=== PATIENT | female | born 1965 | race Caucasian/White ===

== ENCOUNTER 2019-05-30 19:24 | Emergency (ER) | payer OTHER, SELFPAY ==
[2019-05-30 19:27] VITALS: BP 116/72; PULSE 73; RESP 14; TEMP 36.7; O2SAT 98
--- NOTE | 2019-05-30 19:34 | DI.RAD.S_ITS ---
PROCEDURE: XR HIP W PEL IF DONE LT 2V INDICATIONS: fall, pain left hip, radiates down TECHNIQUE: AP pelvis with lateral view(s) of the left hip(s). COMPARISON: None. FINDINGS: Bones: There is a slight area of lucency and irregularity along the superior aspect of the left pubic ramus. Pelvic ring appears intact. No suspicious bony lesions. Soft tissues: The visualized bowel gas pattern is normal. No suspicious soft tissue calcifications. IMPRESSION: Lucency and irregularity along the superior left pubic ramus near the symphysis suggestive of fracture. Dictated by: Lisbeth Alvarado M.D. on 05/30/2019 at 20:13 Approved by: Lisbeth Alvarado M.D. on 05/30/2019 at 20:14
[2019-05-30 19:38] VITALS: BP 106/69; PULSE 63; RESP 19; O2SAT 100
[2019-05-30] MEDS: ONDANSETRON 4 MG ODT SL (19:44)
[2019-05-30] MEDS: HYDROCODONE/ACET 5/325 TABLET 1 TAB PO (19:44)
[2019-05-30 20:00] VITALS: BP 116/75; PULSE 65; RESP 16; O2SAT 100
--- NOTE | 2019-05-30 20:54 | ED_ITS ---
HPI - Extremity Injury (Lower) <CHEVY Arcos - Last Filed: 05/30/19 22:00> General Chief Complaint: Extremity Injury, Lower Stated Complaint: FALL Time Seen by Provider: 05/30/19 19:34 Source: patient Mode of arrival: wheelchair Limitations: no limitations History of Present Illness HPI Narrative: This is a 54-year-old female, nonsmoker, who presents with significant other with chief complain of left hip pain radiating to groin area and below to her lower leg. She injured left hip when her 50 lb puppy pulled her down and she fell backwards and landed on her left side of body on a hard ground with some gravels. She denies any other injuries including head and neck. She denies pain in ankle, foot, knee, upper leg. She reports she is able to move her leg, foot. Her pain increases with raising her left leg and moving her legs. She denies tingling or numbness to her lower legs. She was brought in to ED room via wheelchair. Related Data Home Medications Medication Instructions Recorded Confirmed levothyroxine 75 mcg PO DAILY 05/30/19 05/30/19 Previous Rx's Medication Instructions Recorded hydrocodone-acetaminophen 1 tab PO Q6H PRN #20 tab 05/30/19 ondansetron 4 mg PO Q6-8H PRN #10 tab 05/30/19 Allergies Allergy/AdvReac Type Severity Reaction Status Date / Time Sulfa (Sulfonamide Allergy Unknown Verified 05/30/19 19:30 Antibiotics) Review of Systems <CHEVY Arcos - Last Filed: 05/30/19 22:00> Review of Systems General: Denies fever, chills, fatigue, malaise, sweats. HEENT: Denies sinus pain, ear pain, sore throat, difficulty swallowing, dizziness. Respiratory: Denies dyspnea, cough, wheezing, hemoptysis, sputum. Cardiovascular: Denies chest pain, palpitations, orthopnea, edema. Gastrointestinal: Denies nausea, vomiting, abdominal pain, diarrhea, constipation, melena. : Denies dysuria, frequency, incontinence, hematuria, urinary retention. Musculoskeletal: See HPI Skin: Denies rash, skin lesions, or other. Neurologic: Denies weakness, headache, numbness, change in speech, confusion, seizures, incoordination. Psychiatric: No concerning psychosocial issues. 12-point review of systems is negative except for those stated above. PFSH <CHEVY Arcos - Last Filed: 05/30/19 22:00> Medical History (Updated 05/30/19 @ 21:29 by CHEVY Arcos) Hypothyroidism (Acute) History of rectal fissure (Chronic) Surgical History History of colonoscopy (Chronic) Social History Smoking Status: Never smoker Social History Smoking Status: Never smoker Exam <CHEVY Arcos - Last Filed: 05/30/19 22:00> Narrative Exam Narrative: GEN: Alert, oriented x 3, well appearing and nourished, and in no acute distress. Head: Normal cephalic, atraumatic. No scalp or temporal tenderness, palpable mass or rash. EYES: Pupils are equal, round, and reactive to light and accommodation. Extraocular muscles are intact bilaterally. There is no subconjunctival hemorrhage, exudate and sclera non-icteric. ENT: Bilateral auditory canals and tympanic membranes. Hearing grossly intact. Nose without bleeding, purulent discharge, septal hematoma or deviation. Turbinate without erythema or swelling. Facial sinuses nontender to palpate. Mucous membrane moist, no mucosal lesion. Throat without erythema, tonsillar hypertrophy or exudate. Uvula in midline, airway patent. Neck: Trachea in midline. No JVD, non-tender without lymphadenopathy. No masses or thyroid megaly. Supple, non-tender and no meningeal signs. CARDIAC: Normal regular rate and rhythm without murmurs, gallops, or rubs. No chest wall tenderness. No peripheral edema, cyanosis or pallor. Capillary r efill is less than 2 seconds. RESPIRATORY: Lungs are cleat to auscultate bilaterally. No cough, wheezes, rales, or rhonchi. No stridor, respiratory distress, increase work of breathing, or accessary muscle used. ABD: Abdomen soft, nontender and non-distended. No guarding or rebound tenderness to palpate. Bowel sounds are normal in all 4 quadrants. There is no palpable masses or organomegaly. EXT: L groin pain with external rotation, Full ROM of all extremities with no loss of sensation, strength, effusion or edema. No obvious deformity, crepitus note. SKIN: Superficial abrasion on L posterior shoulder and flank. Warm, dry, normal color for patient. No erythema, lesions or rash over other visible areas. BACK: Nontender without deformity or crepitance. No flank tenderness. NEUROLOGICAL: Alert and oriented to place, time and person. Sensation and motor function intact bilaterally. No facial droops, dysphasia. PSYCHIATRIC: Good judgement and reason, without hallucinations, abnormal affect or abnormal behaviors during the examination. Patient is not suicidal. Initial Vital Signs Initial Vital Signs: Vital Signs Temperature 98.1 F 05/30/19 19:27 Pulse Rate 73 05/30/19 19:27 Respiratory Rate 14 05/30/19 19:27 Blood Pressure 116/72 05/30/19 19:27 Pulse Oximetry 98 05/30/19 19:27 Back/Spine/Pelvis Back: normal to inspection Thoracic/Lumbar Spine: thoracic and lumbar spine normal to inspection, thoraco- lumbar ROM normal, No pain with thoraco-lumbar ROM, No paraspinal tenderness, No thoraco-lumbar ROM limited and straight leg raise positive Sacroiliac Joints: tender to palpation, pain elicited by compression of iliac crest maneuver and pain elicited by passive hyperextension of lower extremity Sacrum: no ecchymosis, no erythema, no swelling and tenderness <Andrea Pimentel DO - Last Filed: 05/31/19 06:26> Initial Vital Signs Initial Vital Signs: Vital Signs Temperature 98.1 F 05/30/19 19:27 Pulse Rate 73 05/30/19 19:27 Respiratory Rate 14 05/30/19 19:27 Blood Pressure 116/72 05/30/19 19:27 Pulse Oximetry 98 05/30/19 19:27 Procedures <CHEVY Arcos - Last Filed: 05/30/19 22:00> Orthopedic Splinting/Casting Injury #1: Side: left Other Orthopedic Equipment: walker Post splinting neuro exam: intact Post splinting vascular exam: intact Placed by: Nursing Additional Comments: L pubic ramus fracture near symphysis. No splint applied. Course <CHEVY Arcos - Last Filed: 05/30/19 22:00> Orders Ordered: Discontinued Medications Hydrocodone Bitart/Acetaminophen ([place] 5/325) 1 tab PO NOW ONE Stop: 05/30/19 19:40 Last Admin: 05/30/19 19:44 Dose: 1 tab Hydrocodone Bitart/Acetaminophen (Vicodin Prepack) 1 bottle MISC SEEINSTR ONE Stop: 05/30/19 21:34 Last Admin: 05/30/19 22:00 Dose: 1 bottle Ondansetron HCl (Zofran Odt) 4 mg SL NOW ONE Stop: 05/30/19 19:40 Last Admin: 05/30/19 19:44 Dose: 4 mg Vital Signs - 8 hr 05/30/19 19:27 05/30/19 19:38 05/30/19 20:00 Temperature 98.1 F Pulse Rate 73 63 65 Respiratory Rate 14 19 16 Blood Pressure 116/72 Blood Pressure [Right Arm] 106/69 116/75 Pulse Oximetry 98 100 100 05/30/19 21:11 Temperature Pulse Rate 68 Respiratory Rate Blood Pressure Blood Pressure [Right Arm] 115/76 Pulse Oximetry 98 <Andrea Pimentel DO - Last Filed: 05/31/19 06:26> Orders Ordered: Discontinued Medications Hydrocodone Bitart/Acetaminophen ([place] 5/325) 1 tab PO NOW ONE Stop: 05/30/19 19:40 Last Admin: 05/30/19 19:44 Dose: 1 tab Hydrocodone Bitart/Acetaminophen (Vicodin Prepack) 1 bottle MISC SEEINSTR ONE Stop: 05/30/19 21:34 Last Admin: 05/30/19 22:00 Dose: 1 bottle Ondansetron HCl (Zofran Odt) 4 mg SL NOW ONE Stop: 05/30/19 19:40 Last Admin: 05/30/19 19:44 Dose: 4 mg Vital Signs - 8 hr 05/30/19 19:27 05/30/19 19:38 05/30/19 20:00 Temperature 98.1 F Pulse Rate 73 63 65 Respiratory Rate 14 19 16 Blood Pressure 116/72 Blood Pressure [Right Arm] 106/69 116/75 Pulse Oximetry 98 100 100 05/30/19 21:11 Temperature Pulse Rate 68 Respiratory Rate Blood Pressure Blood Pressure [Right Arm] 115/76 Pulse Oximetry 98 MDM - Extremity Injury (Lower) <CHEVY Arcos - Last Filed: 05/30/19 22:00> Differential Diagnosis Likely fracture of hip and other (strain of hip) Medical Records Attestation: I reviewed the patient's medical records. Lab Data Attestation: I reviewed the patient's lab results. Urine Dip Bedside Urine Glucose Negative Bedside Urine Bilirubin - Negative Bedside Urine Ketone +/- 5 Urine Specific [place] 1.010 Bedside Urine Occult Blood - Negative Bedside Urine pH 8.0 Bedside Urine Protein +/- 15 Bedside Urine Urobilinogen - Negative Bedside Urine Nitrite - Negative Bedside Urine Leukocytes - Negative Esterase Imaging Data XR-Hip: Radiologist's impression: [address] [address] XRay Report Signed Patient: Erica Grigsby [facility]#: [id number] : 1965Acct:[id number] Age/Sex: 54 / FDate of Service: 05/30/19 Loc: ED Accession Number: [id number] Procedure: XR hip w pel if done LT 2V Ordering Provider: Jadon Whitney PROCEDURE: XR HIP W PEL IF DONE LT 2V INDICATIONS: fall, pain left hip, radiates down TECHNIQUE: AP pelvis with lateral view(s) of the left hip(s). COMPARISON: None. FINDINGS: Bones: There is a slight area of lucency and irregularity along the superior aspect of the left pubic ramus. Pelvic ring appears intact. No suspicious bony lesions. Soft tissues: The visualized bowel gas pattern is normal. No suspicious soft tissue calcifications. IMPRESSION: Lucency and irregularity along the superior left pubic ramus near the symphysis suggestive of fracture. Dictated by: Lisbeth Alvarado M.D. on 05/30/2019 at 20:13 Approved by: Lisbeth Alvarado M.D. on 05/30/2019 at 20:14 [facility] Narrative Medical decision making narrative: This is a 54-year-old female who presents wi th left posterior he pain radiating to anterior groin and down to leg without neurological deficit. She was pulled by her 50 lb puppy and fell backwards and landed on her left side of body on a hard floor with gravel. The patient denies any other injuries. There was no obvious deformity was noted. X-ray test shows left pubic ramus fracture near the symphysis. Patient was treated with 1 tab of [place] and Zofran when she arrived to ED. Patient reports pain has improved with medication and resting in bed. The x-ray finding was discussed with Dr. Muller and consulted for treatment plan. The patient was instructed as activity as tolerated and use walker or crutches for ambulation assistance PRN. I went to the room several times to discuss the findings and instructions with the patient and spouse. Return precautions discussed with patient and spouse. Patient was advised to follow up with her primary care physician in 2-3 days but she currently is in between new PCP. Patient DC to home with [place] for pain management, additional quantity has been provided in case the patient is to follow up next week. We discussed narcotic med precautions including constipation. Work off note for 4 days provided to patient. <Andrea Pimentel DO - Last Filed: 05/31/19 06:26> Lab Data Urine Dip Bedside Urine Glucose Negative Bedside Urine Bilirubin - Negative Bedside Urine Ketone +/- 5 Urine Specific [place] 1.010 Bedside Urine Occult Blood - Negative Bedside Urine pH 8.0 Bedside Urine Protein +/- 15 Bedside Urine Urobilinogen - Negative Bedside Urine Nitrite - Negative Bedside Urine Leukocytes - Negative Esterase Discharge Plan Departure Patient Disposition: Home Clinical Impression: Closed fracture of pubic ramus Qualifiers: Encounter type: initial encounter Laterality: left Qualified Code(s): S32.592A - Other specified fracture of left pubis, initial encounter for closed fracture Discharge Date/Time: 05/30/19 22:03 Interventions: ED Discharge Assessment Last Done: 05/30/19 22:02 Instructions: DI for Hip Fracture Activity Restrictions/Additional Instructions: You have been diagnosed with [superior left bubic ramus fracture per xray test. He can use a walker that is provided today for ambulation. Her activities limitation as tolerated. Your urine does not show any blood indicating kidney injury]. What to do: *Take your medications as directed. He can take [id number] ibuprofen or Motrin for discomfort and ice pack for next couple of days. The [place] can cause drowsiness so please take precaution. Do not drive, drink alcohol, operate heavy equipment. This can cause constipation so he can take [id number] stool softener for this. *Follow up with your primary care provider in 2-3 days, call for an appointment. Let them know you were seen in the ED and that we asked you to be seen in follow up. *Return to ED if you have any new, worsening, or concerning symptoms, such as [worsening pain, tingling numbness to you're lower extremity, weakness, chest pain, breathing difficulty, any acute concerns]. Prescriptions: New hydrocodone-acetaminophen 5-325 mg tablet 1 tab PO Q6H PRN (Reason: pain) Qty: 20 RF: 0 ondansetron 4 mg tablet,disintegrating 4 mg PO Q6-8H PRN (Reason: nausea and vomiting) Qty: 10 RF: 0 No Action levothyroxine 75 mcg Capsule 75 mcg PO DAILY RF: 0 Referrals: [facility] [Outside] Stand Alone Forms: Work Release Note <Andrea Pimentel DO - Last Filed: 05/31/19 06:26> Maria Eugenia ED Attending Jackie Attestation: I was immediately available in the department for consultation. Documentation has been reviewed. I agree with assessment and plan.
[2019-05-30 21:11] VITALS: BP 115/76; PULSE 68; O2SAT 98
[2019-05-30] MEDS: HYDROCODONE/ACET 5/325 PREPACK 1 BOTTLE MISC (22:00)
== END 2019-05-30 22:03 | disposition home or self-care (01) ==
PROVIDERS: Emergency Provider Nurse Practitioner Family
DX: S32.592A Other specified fracture of left pubis, initial encounter for closed fracture (principal); W01.0XXA Fall on same level from slipping, tripping and stumbling without subsequent striking against object, initial encounter; Y93.K1 Activity, walking an animal
CPT/HCPCS: 73502; 81003; 99283; 99284

== ENCOUNTER 2022-01-20 20:48 | Emergency (ER) | payer OTHER, SELFPAY ==
[2022-01-20 20:56] VITALS: BP 152/84; PULSE 75; RESP 18; TEMP 36.7; O2SAT 99; BMI 22.2
--- NOTE | 2022-01-20 21:02 | DI.RAD.S_ITS ---
PROCEDURE: XR CHEST 2V INDICATIONS: FALL, RIB PAIN TECHNIQUE: 2 views of the chest were acquired. COMPARISON: None. FINDINGS: Surgical changes and devices: None. Lungs and pleura: Lungs are clear. No pleural effusions or pneumothorax. Mediastinum: Mediastinal contours are normal. Heart size is normal. Bones and chest wall: No displaced rib fracture identified. No suspicious bony abnormalities. Soft tissues appear unremarkable. IMPRESSION: 1. No acute cardiopulmonary disease. 2. No displaced rib fracture identified. Dictated by: Khurram Cunningham M.D. on 01/20/2022 at 22:08 Approved by: Khurram Cunningham M.D. on 01/20/2022 at 22:08
--- NOTE | 2022-01-20 22:55 | ED_ITS ---
HPI - Fall General Chief Complaint: Fall Stated Complaint: FALL LEFT SIDE RIB PAIN Time Seen by Provider: 01/20/22 22:48 Source: patient Mode of arrival: Ambulatory Limitations: no limitations History of Present Illness HPI Narrative: The patient was helping move a table yesterday. She was in the back of a pickup truck. She stepped off the edge of the truck, falling to the ground. The table fell on her. There was no head, or neck injury. She has a bruise on her lower back. She has pain in the left ribs. She has no difficulty moving upper extremities or lower extremities. She has no difficulty breathing, no hemoptysis, or anterior chest pain. She has no abdominal pain, nausea or vomiting. Related Data Home Medications Medication Instructions Recorded Confirmed levothyroxine 75 mcg capsule 75 mcg PO DAILY 05/30/19 05/30/19 Previous Rx's Medication Instructions Recorded hydrocodone 5 mg-acetaminophen 325 1 tab PO Q6H PRN #20 tab 05/30/19 mg tablet ondansetron 4 mg disintegrating 4 mg PO Q6-8H PRN #10 tab 05/30/19 tablet tramadol 50 mg tablet 50 mg PO Q6-8H PRN #10 tab 01/20/22 Allergies Allergy/AdvReac Type Severity Reaction Status Date / Time Sulfa (Sulfonamide Allergy Unknown Verified 01/20/22 21:01 Antibiotics) Review of Systems Constitutional Constitutional: Reports as per HPI, Reports body ache(s), Denies chills, Denies fatigue, Denies fever(s), Denies headache(s) and Denies weakness ENT Ears, Nose, Mouth, and Throat: Denies dizziness and Denies headache(s) Comments: No head or neck injury. No ENT complaints. Cardiovascular Cardiovascular: Denies syncope, Denies rapid heart rate, Denies pedal edema, Denies leg edema, Denies lightheadedness and Denies dyspnea Comments: Left lateral chest wall pain. Respiratory Respiratory: Denies chest congestion, Denies cough, Reports pain with cough and Denies dyspnea Gastrointestinal Gastrointestinal: Denies abdominal pain, Denies dyspepsia, Denies nausea and Denies vomiting Genitourinary Comments: No urinary complaints. Musculoskeletal Musculoskeletal: Reports as per HPI and Denies numbness Integumentary/Breasts Comments: Bruise on her lower back, no other skin lesions. Neurologic Neurologic: Denies confusion, Denies dizziness, Denies syncope, Denies h eadache(s), Denies memory loss, Denies numbness and Denies weakness Psychiatric Psychiatric: Denies confusion and Denies memory loss Endocrine Endocrine: Denies fatigue Patient History Medical History History of rectal fissure Hypothyroidism Surgical History History of colonoscopy Social History Smoking Status: Never smoker Smoking Status: Never smoker alcohol intake frequency: a few times a week Substance Use Type: does not use Exam Initial Vital Signs Initial Vital Signs: Vital Signs Temperature 98.1 F 01/20/22 20:56 Pulse Rate 75 01/20/22 20:56 Respiratory Rate 18 01/20/22 20:56 Blood Pressure 152/84 H 01/20/22 20:56 Pulse Oximetry 99 01/20/22 20:56 Const General: cooperative, healthy appearing and comfortable [facility] Head: normal to inspection, normocephalic and atraumatic Mouth: oral mucosae normal Throat: posterior oropharynx normal Eyes General: appearance normal, both eyes and all related structures Neck Neck: full ROM and No tender Chest Other: Left lateral rib tenderness. No crepitus. No palpable abnormalities. Resp Effort & Inspection: no audible wheezes and no cough Auscultation: clear to auscultation bilaterally Cardio Rate: regular rate Rhythm: regular rhythm Heart Sounds: S1 normal, S2 normal and no murmurs GI Inspection: normal to inspection Palpation: soft, No guarding and No tender Auscultation: normal bowel sounds Back/Spine/Pelvis Back: other (Contusion over the upper lumbar back without palpable deformity.) Cervical Spine: other (Nontender.) Skin General: no rashes or lesions noted Neuro General: patient alert, patient awake, patient oriented x3 and no focal motor deficits Extrem General: normal to inspection and full ROM (Without discomfort.) Psych Mental Status: mental status grossly normal Course Course Course Narrative: Patient's exam indicates only possible left rib injury. Chest x-ray/left rib x- rays are normal. She will be discharged home on ibuprofen and tramadol for pain. Orders Ordered: Discontinued Medications Tramadol HCl (Tramadol 50 Mg Prepack) 1 bottle MISC SEEINSTR ONE Stop: 01/20/22 22:55 Last Admin: 01/20/22 23:07 Dose: 1 bottle Documented by: GURVINDER Vital Signs Vital signs: Vital Signs - 8 hr 01/20/22 20:56 Temperature 98.1 F Pulse Rate 75 Respiratory Rate 18 Blood Pressure 152/84 H Pulse Oximetry 99 MDM - Fall Imaging Data CXR/left rib x-ray:: Radiologist's Impression: 1. No acute cardiopulmonary disease. ? 2. No displaced rib fracture identified.? Discharge Plan Departure Patient Disposition: Home Clinical Impression: Contusion of rib on left side Instructions: DI for Rib Contusion Activity Restrictions/Additional Instructions: Advil 2 tablets every 6 hours as needed for pain. Tramadol every 6 hours as needed for added pain control. Focus on deep breathing and stretching several times daily. Anticipate needing 1-2 weeks for the pain to resolve. Follow-up with your doctor in 2 weeks if not improved. Return here if obviously worse. Prescriptions: New tramadol 50 mg tablet 50 mg PO Q6-8H PRN (Reason: pain) Qty: 10 0RF No Action levothyroxine 75 mcg Capsule 75 mcg PO DAILY 0RF hydrocodone-acetaminophen 5-325 mg tablet 1 tab PO Q6H PRN (Reason: pain) Qty: 20 0RF Rx Instructions: cause drowsiness ondansetron 4 mg tablet,disintegrating 4 mg PO Q6-8H PRN (Reason: nausea and vomiting) Qty: 10 0RF
[2022-01-20] MEDS: TRAMADOL 50 MG PREPACK 1 BOTTLE MISC (23:07)
[2022-01-20 23:13] VITALS: BP 130/83; PULSE 72; RESP 15; O2SAT 98
--- NOTE | 2022-01-20 23:13 | PC.NURSE ---
pt c/o left sided rib pain worse with inspiration, no splinting noted breathing non labored
== END 2022-01-20 23:14 | disposition home or self-care (01) ==
PROVIDERS: Emergency Provider Emergency Medicine
DX: S20.222A Contusion of left back wall of thorax, initial encounter (principal); W17.89XA Other fall from one level to another, initial encounter; W20.8XXA Other cause of strike by thrown, projected or falling object, initial encounter
CPT/HCPCS: 71046; 99281; 99283

== ENCOUNTER → 2024-04-23 13:42 | Outpatient (CLI) | payer OTHER, SELFPAY ==
--- NOTE | 2024-04-23 13:44 | DI.RAD.S_ITS ---
PROCEDURE: XR FINGER LT MIN 2V INDICATIONS: Finger injury TECHNIQUE: AP hand, 2 views of the 5th finger(s) acquired. COMPARISON: None. FINDINGS: Bones: Acute, minimally displaced, extra-articular fracture of the 5th distal phalanx. Moderate to severe 1st CMC joint space narrowing and juxta-articular osteophytosis. Loose body in the radial aspect of the 1st CMC joint measuring 6 mm. No dislocation. No suspicious bony lesions. Soft tissues: No suspicious soft tissue calcifications. IMPRESSION: 1. Acute, minimally displaced, extra-articular fracture of the 5th distal phalanx. No dislocation. 2. 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 Dictated by: Rosa Lucio M.D. on 04/23/2024 at 16:06 Approved by: Rosa Lucio M.D. on 04/23/2024 at 16:27
== END ==
LOC: RAD 13:43
PROVIDERS: Referring Provider Nurse Practitioner Family; Visit Provider Nurse Practitioner Family
DX: S62.667A Nondisplaced fracture of distal phalanx of left little finger, initial encounter for closed fracture (principal); M18.12 Unilateral primary osteoarthritis of first carpometacarpal joint, left hand; X58.XXXA Exposure to other specified factors, initial encounter
CPT/HCPCS: 73140

== ENCOUNTER 2024-10-28 16:29 | Emergency (ER) | payer OTHER, SELFPAY ==
[2024-10-28 16:33] VITALS: BP 132/79; PULSE 75; RESP 18; TEMP 37.1; O2SAT 99; BMI 22.2
--- NOTE | 2024-10-28 16:42 | DI.RAD.S_ITS ---
PROCEDURE: XR ANKLE LT MIN 3V INDICATIONS: Fell, L ankle swelling and reduced ROM TECHNIQUE: 3 views of the ankle were acquired. COMPARISON: None. FINDINGS: Bones: Mildly displaced fractures of both the distal fibula and medial malleolus. Medial malleolar fracture extends into the tibiotalar joint space. There is subluxation at the tibiotalar joint space. Soft tissues: Ankle effusion. Achilles tendon appears normal. IMPRESSION: Bimalleolar fracture with extension into the tibiotalar joint space. Dictated by: Lisbeth Alvarado M.D. on 10/28/2024 at 17:27 Approved by: Lisbeth Alvarado M.D. on 10/28/2024 at 17:28
--- NOTE | 2024-10-28 18:11 | DI.RAD.S_ITS ---
PROCEDURE: XR KNEE LT 3V INDICATIONS: left ankle fx; eval proximal fibula TECHNIQUE: 3 views of the knee were acquired. COMPARISON: None. FINDINGS: Bones: No fractures or dislocations. No suspicious bony lesions. Tricompartmental arthritic changes. No erosions. Periarticular osteophytes. Soft tissues: Mild joint effusion. No suspicious soft tissue calcifications. IMPRESSION: No visualized acute fracture or dislocation. However, if clinical concern and/or pain persist, short interval imaging followup in 7-10 days is recommended, as occult injury cannot be definitively excluded. Dictated by: Lisbeth Alvarado M.D. on 10/28/2024 at 19:17 Approved by: Lisbeth Alvarado M.D. on 10/28/2024 at 19:18
--- NOTE | 2024-10-28 18:44 | ED_ITS ---
HPI - Extremity Injury (Lower) <Yesi Meadows PA-C - Last Filed: 10/28/24 20:11> General Chief Complaint: Extremity Injury, Lower Stated Complaint: L Ankle Injury Time Seen by Provider: 10/28/24 18:43 Source: patient Mode of arrival: Family Vehicle History of Present Illness HPI Narrative: Ms. Grigsby is a very pleasant 59-year-old female with a past medical history of hypothyroidism who presents to the emergency department for left ankle pain/injury that occurred just prior to arrival. Patient states that she was standing on a bucket when she accidentally slipped rolling her left ankle landing on the lateral aspect of the foot. She has had pain and swelling of both sides of the ankle since then. She denies hitting her head or sustaining any other injuries. Denies headache, neck pain, back pain, wrist pain, knee pain. She has not taken any medications prior to arrival and is not on any blood thinners. She is here with her . Related Data Home Medications Medication Instructions Recorded Confirmed levothyroxine 75 mcg capsule 75 mcg PO DAILY 05/30/19 04/23/24 Allergies Allergy/AdvReac Type Severity Reaction Status Date / Time Sulfa (Sulfonamide Allergy Unknown Verified 04/23/24 12:56 Antibiotics) Review of Systems <Yesi Meadows PA-C - Last Filed: 10/28/24 20:11> Review of Systems ROS Unobtainable: All systems reviewed & are unremarkable except as noted in HPI and below Patient History <Yesi Meadows PA-C - Last Filed: 10/28/24 20:11> Medical History History of rectal fissure Hypothyroidism Surgical History History of colonoscopy Social History Smoking Status: Never smoker Smoking Status: Never smoker alcohol intake frequency: a few times a week Exam <Yesi Meadows PA-C - Last Filed: 10/28/24 20:11> Narrative Exam Narrative: GENERAL: 59 year old patient appears stated age. Well-developed patient, in no a cute distress, sitting in wheelchair. HEAD: Atraumatic. Normocephalic. CARDIOVASCULAR: Regular rate and rhythm. Strong left DP pulse palpated. Brisk capillary refill on left toes. RESPIRATORY: ?Nonlabored respirations. ?Speaking in clear, full sentences. EXTREMITIES: Left ankle with diffuse swelling. Tenderness to palpation of medial and lateral malleolus. No tenderness to palpation of plantar aspect of left foot or dorsal foot. Full flexion and extension of left knee without pain, no tenderness to palpation of left knee or left bill. NEURO: AOx3. ?Clear speech. ?Sensation intact to light touch on the distal left foot. Initial Vital Signs Initial Vital Signs: Vital Signs Temperature 98.8 F 10/28/24 16:33 Pulse Rate 75 10/28/24 16:33 Respiratory Rate 18 10/28/24 16:33 Blood Pressure 132/79 10/28/24 16:33 Pulse Oximetry 99 10/28/24 16:33 Oxygen Delivery Method Room Air 10/28/24 16:33 <Lewis Salter DO - Last Filed: 10/28/24 20:48> Initial Vital Signs Initial Vital Signs: Vital Signs Temperature 98.8 F 10/28/24 16:33 Pulse Rate 75 10/28/24 16:33 Respiratory Rate 18 10/28/24 16:33 Blood Pressure 132/79 10/28/24 16:33 Pulse Oximetry 99 10/28/24 16:33 Oxygen Delivery Method Room Air 10/28/24 16:33 Procedures <Yesi Meadows PA-C - Last Filed: 10/28/24 20:11> Orthopedic Splinting/Casting Injury #1: Time of procedure: 19:50 Side: left Lower Extremity Injury Location: ankle Lower Extremity Immobilizer: posterior splint and stirrup splint Other Orthopedic Equipment: crutches Post splinting neuro exam: intact Post splinting vascular exam: intact Placed by: Provider (Dr. Salter and myself) Course <DIANA Tran Last Filed: 10/28/24 20:11> Orders Ordered: ED Orders 10/28/24 16:42 XR ankle LT min 3V Stat 10/28/24 18:11 XR knee LT 3V Stat Discontinued Medications Acetaminophen (Acetaminophen 325 Mg Tablet) 650 mg PO NOW ONE Stop: 10/28/24 19:25 Last Admin: 10/28/24 19:43 Dose: 650 mg Documented By: Hydrocodone Bitart/Acetaminophen (Hydrocodone/Acet 5/325 Prepack) 1 bottle MISC DIRECTED ONE Stop: 10/28/24 20:03 Last Admin: 10/28/24 20:14 Dose: 1 bottle Documented By: Ibuprofen (Ibuprofen 400 Mg Tablet) 400 mg PO NOW ONE Stop: 10/28/24 19:25 Last Admin: 10/28/24 19:43 Dose: 400 mg Documented By: Vital Signs Vital signs: Vital Signs - 8 hr 10/28/24 16:33 10/28/24 19:15 10/28/24 20:18 Temperature 98.8 F 98.5 F Pulse Rate 75 66 Pulse Rate [Left Posterior Tibial] 65 Respiratory Rate 18 19 Blood Pressure 132/79 135/78 Pulse Oximetry 99 99 Oxygen Delivery Method Room Air Room Air <Lewis Salter DO - Last Filed: 10/28/24 20:48> Orders Ordered: ED Orders 10/28/24 16:42 XR ankle LT min 3V Stat 10/28/24 18:11 XR knee LT 3V Stat Discontinued Medications Acetaminophen (Acetaminophen 325 Mg Tablet) 650 mg PO NOW ONE Stop: 10/28/24 19:25 Last Admin: 10/28/24 19:43 Dose: 650 mg Documented By: Hydrocodone Bitart/Acetaminophen (Hydrocodone/Acet 5/325 Prepack) 1 bottle MISC DIRECTED ONE Stop: 10/28/24 20:03 Last Admin: 10/28/24 20:14 Dose: 1 bottle Documented By: Ibuprofen (Ibuprofen 400 Mg Tablet) 400 mg PO NOW ONE Stop: 10/28/24 19:25 Last Admin: 10/28/24 19:43 Dose: 400 mg Documented By: Vital Signs Vital signs: Vital Signs - 8 hr 10/28/24 16:33 10/28/24 19:15 10/28/24 20:18 Temperature 98.8 F 98.5 F Pulse Rate 75 66 Pulse Rate [Left Posterior Tibial] 65 Respiratory Rate 18 19 Blood Pressure 132/79 135/78 Pulse Oximetry 99 99 Oxygen Delivery Method Room Air Room Air MDM - Extremity Injury (Lower) <Yesi Meadows PA-C - Last Filed: 10/28/24 20:11> Imaging Data Left Ankle X-Ray: Radiologist's Impression: PROCEDURE: XR ANKLE LT MIN 3V INDICATIONS: Fell, L ankle swelling and reduced ROM TECHNIQUE: 3 views of the ankle were acquired. COMPARISON: None. FINDINGS: Bones: Mildly displaced fractures of both the distal fibula and medial malleolus. Medial malleolar fracture extends into the tibiotalar joint space. There is subluxation at the tibiotalar joint space. Soft tissues: Ankle effusion. Achilles tendon appears normal. IMPRESSION: Bimalleolar fracture with extension into the tibiotalar joint space. Left Knee X-Ray: Radiologist's Impression: PROCEDURE: XR KNEE LT 3V INDICATIONS: left ankle fx; eval proximal fibula TECHNIQUE: 3 views of the knee were acquired. COMPARISON: None. FINDINGS: Bones: No fractures or dislocations. No suspicious bony lesions. Tricompartmental arthritic changes. No erosions. Periarticular osteophytes. Soft tissues: Mild joint effusion. No suspicious soft tissue calcifications. IMPRESSION: No visualized acute fracture or dislocation. However, if clinical concern and/or pain persist, short interval imaging followup in 7-10 days is recommended, as occult injury cannot be definitively excluded. [facility] [place] Narrative Medical decision making narrative: 59-year-old female with a past medical history of hypothyroidism who presents to the emergency department for left ankle pain/injury that occurred just prior to arrival. She is with her who contributes to the history. Differential diagnosis includes but is not limited to ankle fracture, ankle sprain, ankle strain, etc. On exam patient is in no acute distress, nontoxic-appearing, all vital signs within normal limits. She is diffuse swelling of the left ankle and tenderness to palpation of the medial and lateral malleolus. Left ankle x-ray obtained in the waiting room which reveals a bimalleolar fracture. Left foot is neurovascularly intact and lower extremity compartments soft. Consult placed orthopedic surgery and left knee x-ray obtained to rule out proximal fibula injury. She would only like ibuprofen and Tylenol for pain at this time. Left knee x-ray negative. Discussed case with ER attending physician Dr. Salter. At approximately 7:[address] Salter placed the patient into a left posterior back slab splint with stirrup. Patient tolerated splint well. Post splint application assessment performed by myself and patient's left lower extremity is neurovascularly i ntact. She was provided with crutches and crutch education. She is provided with prepack of hydrocodone-acetaminophen if needed for severe pain. Discussed risks of narcotics. Provided patient with [facility] information and advised she call 1st thing Thursday morning for follow up next week for further management. She is to remain nonweightbearing until she is evaluated by Orthopedics. Recommended ibuprofen/Tylenol, rice therapy. We discussed signs and symptoms to return to the ER for immediately. Both her and her verbalized understanding of all information. She is agreeable the plan and stable for discharge home. <Lewis Salter, DO - Last Filed: 10/28/24 20:48> [facility] [place] Narrative Medical decision making narrative: 59-year-old female with a past medical history of hypothyroidism who presents to the emergency department for left ankle pain/injury that occurred just prior to arrival. She is with her who contributes to the history. Differential diagnosis includes but is not limited to ankle fracture, ankle sprain, ankle strain, etc. On exam patient is in no acute distress, nontoxic-appearing, all vital signs within normal limits. She is diffuse swelling of the left ankle and tenderness to palpation of the medial and lateral malleolus. Left ankle x-ray obtained in the waiting room which reveals a bimalleolar fracture. Left foot is neurovascularly intact and lower extremity compartments soft. Consult placed orthopedic surgery and left knee x-ray obtained to rule out proximal fibula injury. She would only like ibuprofen and Tylenol for pain at this time. Left knee x-ray negative. Discussed case with ER attending physician Dr. Salter. At approximately 7:[address] Salter placed the patient into a left posterior back slab splint with stirrup. Patient tolerated splint well. Post splint application assessment performed by myself and patient's left lower extremity is neurovascularly intact. She was provided with crutches and crutch education. She is provided with prepack of hydrocodone-acetaminophen if needed for severe pain. Discussed risks of narcotics. Provided patient with [facility] information and advised she call 1st thing Thursday morning for follow up next week for further management. She is to remain nonweightbearing until she is evaluated by Orthopedics. Recommended ibuprofen/Tylenol, rice therapy. We discussed signs and symptoms to return to the ER for immediately. Both her and her verbalized understanding of all information. She is agreeable the plan and stable for discharge home. Dr Salter: I assisted with placement of the splint. Patient was neurovascularly intact. Patient will be discharged home to follow up with Orthopedic surgery. Discharge Plan Departure Patient Disposition: Home Clinical Impression: Bimalleolar fracture of left ankle Qualifiers: Encounter type: initial encounter Fracture type: closed Qualified Code(s): S82.842A - Displaced bimalleolar fracture of left lower leg, initial encounter for closed fracture Instructions: DI for Ankle Fracture Activity Restrictions/Additional Instructions: Today you were evaluated for left ankle pain and found to have a bimalleolar fracture of the left ankle. A left ankle splint was applied in the emergency department. It is very important that you follow up with Orthopedics for further management of this fracture. You may call [facility] at [phone] to schedule an appointment with Dr. Price or one of the other orthopedic surgeons. It is very important to keep the splint dry. Please use RICE therapy for your pain in addition to ibuprofen/acetaminophen. Rest the painful area. Ice the area of pain/swelling for at least 15 minutes, 4x a day. Compress the area of swelling using a brace, wrap, or splint if applied. Elevate the painful or swollen extremity by supporting it above the level of the heart with pillows when sitting or laying. Please take Ibuprofen (Motrin/Advil) or Acetaminophen (Tylenol) for pain. These are available over the counter. You may take Ibuprofen 600 mg every 8 hours with food for pain. You may also take Acetaminophen 650 mg every 4-6 hours for pain. Do not exceed 3000 mg of Tylenol a day as this can cause liver damage. Do not drink alcohol with either of these medications. You may also take the prescribed hydrocodone-acetaminophen if needed for severe pain. You have been prescribed a short course of narcotic medications. These are potentially dangerous and addictive medications that should be used carefully. While on these medications you cannot drive or operate heavy machinery. Additionally, you cannot sign legal documents or perform any duties such as this. Many people get constipated on narcotic medications so it would be advisable to discuss stool softeners with the pharmacist when you brain picker your prescription. Please understand that we cannot provide further refills of narcotics or control led substances through the ED and your pain management will need to be through your Primary Care Provider. Return to the ER immediately if you develop severe pain, color change or numbness of the toes, any other concerns Please follow up with your primary care doctor within the next 2-3 days for ER follow-up. (If you do not have a PCP you can call [phone]. ?to schedule an appointment with an [facility] Primary Care Provider) IF YOU DEVELOP ANY NEW OR WORSENING SYMPTOMS, RETURN TO THE ER! Please read the attached instructions, they highlight more specific treatments and interventions for you at home. Thank you for letting me participate in your care, Yesi Meadows PA-C Prescriptions: No Action levothyroxine 75 mcg Capsule 75 mcg PO DAILY Referrals: Miscellaneous,Doctor, [Primary Care Provider] - Mihaela Price MD [Physician] - (Left ankle evon fracture seen in ER 10/28/24) Stand Alone Forms: Patient Portal/API/Survey
[2024-10-28 19:15] VITALS: PULSE 65
[2024-10-28] MEDS: ACETAMINOPHEN 325 MG TABLET 650 MG PO (19:43)
[2024-10-28] MEDS: IBUPROFEN 400 MG TABLET PO (19:43)
[2024-10-28] MEDS: HYDROCODONE/ACET 5/325 PREPACK 1 BOTTLE MISC (20:14)
[2024-10-28 20:18] VITALS: BP 135/78; PULSE 66; RESP 19; TEMP 36.9; O2SAT 99
== END 2024-10-28 20:20 | disposition home or self-care (01) ==
PROVIDERS: Emergency Provider Physician Assistant
DX: S82.842A Displaced bimalleolar fracture of left lower leg, initial encounter for closed fracture (principal); W01.0XXA Fall on same level from slipping, tripping and stumbling without subsequent striking against object, initial encounter
CPT/HCPCS: 73562; 73610; 99283

== ENCOUNTER → 2024-11-01 12:02 | Outpatient (CLI) | payer OTHER, SELFPAY ==
--- NOTE | 2024-11-01 12:05 | DI.CT.S_ITS ---
PROCEDURE: CT ANKLE LEFT WITHOUT INDICATIONS: DISPLACED PILON FX LT TIBIA TECHNIQUE: Noncontrast 1-1.5 mm axial sections acquired from above the tibiotalar joint to the bottom of the calcaneus, with coronal and sagittal reformats. COMPARISON: None. FINDINGS: Image quality: Excellent. Bones: Comminuted, mildly displaced fracture of the tibial plafond, extending to the medial malleolus. Comminuted, nondisplaced fracture of the lateral malleolus. Additional heterotopic ossification at the tip of the lateral malleolus, representing prior injury. Anterior subluxation of the talus dome with respect to the tibial plafond. Patient is imaging in a cast. Soft tissues: Diffuse subcutaneous edema of the ankle, extending to the dorsal midfoot, partially visualized. The flexor, extensor, and peroneal tendons unremarkable. The distal Achilles tendon is unremarkable. There is a small skin blister in the medial distal leg. IMPRESSION: 1. Comminuted fracture of the tibial plafond, extending to the medial malleolus. 2. Comminuted, nondisplaced fracture of the lateral malleolus. 3. Anterior subluxation of the talus dome with respect to the tibial plafond. 4. Small skin blistering in the medial distal leg. Dictated by: Awa Bravo M.D. on 11/01/2024 at 14:09 Approved by: Awa Bravo M.D. on 11/01/2024 at 14:14
== END ==
LOC: CT 12:03
PROVIDERS: Referring Provider Physician Assistant Surgical; Visit Provider Physician Assistant Surgical
DX: S82.872A Displaced pilon fracture of left tibia, initial encounter for closed fracture (principal); S82.65XA Nondisplaced fracture of lateral malleolus of left fibula, initial encounter for closed fracture; S80.822A Blister (nonthermal), left lower leg, initial encounter; X58.XXXA Exposure to other specified factors, initial encounter
CPT/HCPCS: 73700

== ENCOUNTER 2024-11-09 10:13 | Day surgery (SDC) | payer OTHER, SELFPAY ==
[2024-11-03 09:16] VITALS: BMI 23.5
[2024-11-09] VITALS (9 sets, daily range): BP systolic 111–140; BP diastolic 62–85; PULSE 72–85; RESP 12–18; TEMP 36.3–37.1; O2SAT 96–100; BMI 22.2
--- NOTE | 2024-11-09 11:01 | PM.PREOP ---
Pre-operative Note Interval Note History & Physical reviewed/Exam performed by Physician: Yes Changes to H&P: No
--- NOTE | 2024-11-09 11:26 | P.OP_ITS ---
Operative Date/Time/Diagnoses Date of procedure: 11/09/24 Time of procedure: 11:45 Pre-op diagnosis: Left tibial plafond and fibula fractures s82.872 S82.832 Post-op diagnosis: same Procedure & Clinicians Procedure: Open reduction internal fixation left distal tibia plafond fracture intra- articular distal tibia and fibula fracture CPT code 66682 Same procedure as scheduled: Yes Indications: The patient is a 59-year-old female that slipped and fell down stairs on her deck. She sustained a comminuted anterior tibial plafond fracture. She was indicated for open reduction internal fixation. She understands that she has a significant intra-articular injury with the risk of significant posttraumatic arthritis. She understands that if she has persistent pain after fracture healing additional procedures to address arthritis may be indicated. Discussed plan to fix her distal tibial plafond and fibula fractures. She does have a hi story of an old Bautista a fibula fracture but now has a new fracture above this level. Her soft tissues are appropriate to proceed with open reduction internal fixation. She denies other injuries. She does not have any personal or family history of hypercoagulability or venous thromboembolism. The risks and benefits of the procedure have been discussed with the patient and given the opportunity to ask questions. The risks of surgery include but are not limited to infection, malunion, nonunion, persistence of pain, damage to nerves and blood vessels, posttraumatic arthritis, DVT, PE, cardiopulmonary complications and . The patient expressed a thorough understanding of the risks and benefits of surgery and has elected to proceed. Consent was signed in Surgeon: Lisa Zelaya Click Yes if Unassisted: Yes Anesthesia Type: General, Peripheral nerve block and Local Operative Notes Findings: Extensive comminution anterior tibial plafond fracture involving the anterior half of the plafond with separate medial fragment and separate fibula fracture. Fibula fracture was reduced and fixed with a 3.5 solid cortical screw 90 mm intramedullary Distal tibia had area of marginal impaction and non-reconstructible central cartilage proximally 5 x 5 mm. There was separate posterior anterior lateral and medial fragments anterior lateral fragment was booked open to expose the marginal impaction and cartilage defect. Visible parts of talar dome was intact. Medial fragment was extensively osteoporotic like an egg shell. Fracture was reduced. Medial malleolus was fixed with an antiglide 4 hole plate Pilon was fixed with an anterior lateral plate from the paragon 28 set Closure Type: primary Prosthetic devices, grafts, tissues, transplants, or devices: [id number]---alnnj anterior lateral plate with 3.5 locking and nonlocking screws [place] 28 four hole 1/3 tubular curved plate for medial malleolus and locking screws 3.5 [place] 28 3.5 cortical screw 90 mm for fibula Estimated Blood Loss (mL): 20 Blood products transfused: none Tourniquet time (min): 90 Procedure in detail: The patient is a 59-year-old female with a left pilon fracture. She was seen in the preoperative area the site of surgery was marked and informed consent conf irmed that is the left ankle. She was seen by the anesthesia team and regional blocks were placed for postoperative pain control. She was then brought to the operating room positioned supine on operative table and general anesthetic was administered. Left lower extremity was prepared a well-padded thigh tourniquet was applied and the SCD on the contralateral lower extremity. The left lower extremity was prepped and draped in the standard sterile fashion a formal time- out procedure was performed confirming the patient's side and site of surgery administration of appropriate preoperative antibiotic. All were in agreement Attention turned to the left lower extremity there was mild swelling there were no blisters skin wrinkles were present. The Esmarch was used for exsanguination and the tourniquet raised on the thigh to 250 mm of mercury. Attention turned to the fibula the landmarks were marked out under fluoroscopic guidance along the fibula. Small incision was made about a cm distal to the fibula. 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 This was checked on AP and lateral images to be in bone. This was then overdrilled then the drill and guidewire were removed and a 3.5 cortical screw 90 mm in length was advanced intramedullary through the bone and across both the old fibular nonunion and the new acute distal fibula fracture. This wound was irrigated and closed with 4-0 Monocryl and 3-0 nylon suture. Attention was then turned to the tibial plafond injury an anterior lateral approach to the tibial plafond was taken down across the anterior ankle skin and subcutaneous tissue were divided. The superficial peroneal nerve was identified and protected throughout the case this was initially retracted medially and the extensor retinaculum was opened over the ATFL and then across the joint. The ADL and peroneus tertius were retracted laterally and the neurovascular bundle EHL were all retracted medially. This brought us down on the anterior pilon fracture. The large anterior lateral fragment was open booked exposing the central marginal impaction. The medial fragment was extensively osteoporotic. There were several small free cartilage fragments larger 3 and 2 mm fracture cartilage fragments. The fracture was mobilized the marginal impaction that was able to be reduced was reduced. And the fracture was reduced and pinned. After reduction there was still approximately a 5 mm circular area in the central plafond absent of cartilage and was non-reconstructible. An intraoperative AP mortise and lateral x-ray near anatomic alignment of the the plafond was able to be achieved on these images however again there was a central defect and the plafond cartilage. Talus cartilage that was visualized was intact. Fracture was held with K-wires. Next the medial spike was reduced and fixed with an antiglide plate through a separate medial incision again the medial malleolar bone and anteromedial fragment was extensively osteoporotic. This was fixed with a 4 hole 1/3 tubular plate with locking screws positioned in an antiglide fashion medially. Then attention was returned to the anterior lateral approach to the pilon. An anterior lateral plate from the paragon set was slid along the bone making sure that I had at least 3-4 screw holes proximal to the apex of the fracture. This was then positioned with the TACS and checked on fluoroscopy once appropriate was secured distally with a nonlocking 3.5 screw and proximally with a olive wire. Next locking 3.5 screws were placed with care to make sure the trajectory was above the articular surface. Finally shaft screws were placed with 2 locking shaft screws and 1 nonlocking scaphoid screw. Attention was returned distally and the initial nonlocking pilon screw was exchanged for a locking screw. Final x-rays AP mortise and lateral were obtained that showed near anatomic alignment of the pilon fracture tibia and fibula ORIF without evidence of hardware complication. The tourniquet was released and hemostasis was achieved. The extensor retinaculum was closed with 0 PDS suture with the additional deeper 0 suture in the arthrotomy. Subcutaneous was closed with 2-0 Vicryl suture and the skin with 3-0 nylon suture. Medially closure was with 2-0 Vicryl and 3-0 nylon suture. 30 cc of 0.25% Marcaine with epinephrine was injected for local anesthetic. The dressings were placed with Xeroform gauze Webril bulky Mace splint with posterior and U slabs. The patient was splinted in neutral dorsiflexion position and was awoken from the surgery and taken to the recovery room in good condition there were no immediate complications from this procedure. Counts were correct. Complications: none Post-operative Condition: stable Disposition: PACU Plan for aftercare: Nonweightbearing or touchdown for balance at least 6 weeks on left ankle. Elevated at heart level for 1st 2-3 weeks postop. Aspirin 325 mg daily for DVT prophylaxis. Keep bulky Mace splint in place. Keep splint dry. Sutures remain in place minimum of 3 weeks.
[2024-11-09] MEDS: CEFAZOLIN 2 GM/100 ML PREMIX 100 ML IV (12:13)
--- NOTE | 2024-11-09 12:32 | SUR.OPER ---
Supine on padded OR bed, head on pillow, arms secured on padded arm boards at <90 degrees abduction, legs uncrossed, safety belt at torso, tape over blanket over right lower leg, left leg prepped into the field
[2024-11-09] MEDS: BUPIVACAINE 0.25% W/ EPI 30 ML VIAL 60 ML INJ (12:40)
[2024-11-09] MEDS: LACTATED RINGERS 1,000 ML 42 ML IV (14:10)
--- NOTE | 2024-11-09 14:20 | DI.RAD.S_ITS ---
PROCEDURE: XR ANKLE LT MIN 3V INDICATIONS: LEFT INTERNAL FIXATION OF ANKLE TECHNIQUE: Four views of the ankle were acquired. COMPARISON: [facility], CR, XR ANKLE LT MIN 3V, 10/28/2024, 16:48. FINDINGS: Intraoperative fluoroscopy for ORIF of the left ankle. Spot images demonstrate near anatomic alignment the ankle intact hardware pieces. IMPRESSION: Intraoperative fluoroscopy for left ankle ORIF. Dictated by: Natalee Hanson M.D. on 11/10/2024 at 14:58 Approved by: Natalee Hanson M.D. on 11/10/2024 at 14:59
== END 2024-11-09 15:57 | disposition home or self-care (01) ==
PROVIDERS: PCP Nurse Practitioner; Referring Provider Physician Assistant Surgical; Visit Provider Orthopaedic Surgery Foot and Ankle Surgery
PROC: (CPT 27828; principal; 2024-11-09 12:15)
DX: S82.872A Displaced pilon fracture of left tibia, initial encounter for closed fracture (principal); S82.832A Other fracture of upper and lower end of left fibula, initial encounter for closed fracture; G89.18 Other acute postprocedural pain; E03.9 Hypothyroidism, unspecified; W17.89XA Other fall from one level to another, initial encounter
CPT/HCPCS: 27828; 64450; 73610; 76000; C1713; J0690; J1100; J1885; J2250; J2405; J2704; J3010

== ENCOUNTER → 2025-10-01 13:35 | Outpatient (CLI) | payer OTHER, SELFPAY | PROVIDERS: PCP Nurse Practitioner; Visit Provider Nurse Practitioner Family | DX: R39.15 Urgency of urination (principal); N89.8 Other specified noninflammatory disorders of vagina | CPT/HCPCS: 87077; 87086; 87186; 87210 ==